=== PATIENT | male | born 1980 | race Two or more races ===

== ENCOUNTER 2024-08-18 06:55 | Inpatient (IN) | payer MEDICAID, SELFPAY ==
[2024-08-18] VITALS (9 sets, daily range): BP systolic 116–149; BP diastolic 68–89; PULSE 57–71; RESP 14–99; TEMP 36.4–37.1; O2SAT 95–98; BMI 25.8
--- NOTE | 2024-08-18 07:02 | EKG_ITS ---
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
--- NOTE | 2024-08-18 07:11 | PC.NURSE ---
Patient BIBA due to L sided chest pain that radiated to L arm 8/10, along with one episode of N/V. EMS gave patient Nitro 1 paste, Nitro SL X2, ASA 162mg chewable. Upon arrival to ED patients pain subsided to 5/10. Patient is A&O X4 Telugu speaking only. Patient states pain is 5/10 at this time. Patient has hx of HTN, hyperlipidemia; no medication at this time since he ran out, and has not received a new Rx. POC updated patient veralized understanding.
--- NOTE | 2024-08-18 07:12 | EDNOTE_ITS ---
ED General RME/HPI General Chief complaint: Chest Pain Stated complaint: CHEST PAIN Time Seen by Provider: 08/18/24 07:30 Arrival date/time: 08/18/24 06:55 Limitations: no limitations RME / HPI RME / HPI narrative: DR. MORGAN MAIN ED EVALUATION: 43 year old male presents to the Emergency Department [facility] from home with complaint of chest pain onset 5 AM. Patient states he was getting ready for work and started having chest pain; he works in the [employer]. Pain radiates to the left arm. Associated symptoms that started after the chest pain include shortness of breath, nausea, and vomiting x2 episodes. He states he had similar symptoms 1 year ago. Per EMS, blood pressure was 200/87, heart rate was 71, and satting at 98% on room air. EKG done by EMS in the field was normal, sinus rhythm at [address]-T changes. Prehospital treatment included ASA and nitro given by EMS. PMHx: Hypertension and hyperlipidemia. Social Hx: No tobacco, alcohol, or substance use. Related Data Previous Rx's ?Medication ?Instructions ?Recorded aspirin 81 mg chewable tablet 81 mg PO QDAY 30 days #3 0 tabs 08/20/24 atorvastatin 80 mg tablet 80 mg PO QPM 30 days #30 tab s 08/20/24 clopidogrel 75 mg tablet 75 mg PO QDAY 30 days #30 ta bs 08/20/24 folic acid 1 mg tablet 1 mg PO BID 14 days #28 tabs 08/20/24 nitroglycerin 0.4 mg sublingual 0.4 mg buccal .up to 3 PRN chest 08/20/24 tablet pain #14 tabs pantoprazole 40 mg tablet,delayed 40 mg PO QDAY 30 day s #30 tabs 08/20/24 release Allergies Allergy/AdvReac Type Severity Reaction Status Date / Time No Known Allergies Allergy Verified 06/10/23 05:35 Review of Systems Review of Systems Systems Reviewed: All systems reviewed, normal except as documented Past Medical History Past Medical History CARDIAC: Positive Hypercholesterolemia and Hypertension PSYCHO/SOCIAL: Positive Anxiety Family History FAMILY HISTORY: Positive Family Cardiac Disorders (MOTHER HTN) and Family Gastrointestinal Problems Social History SMOKING STATUS: Never smoker ED Exam General Limitations: Present no limitations General appearance: Present alert, in no apparent distress and other (mild shakiness like he is cold) Head Head exam: Present atraumatic, normocephalic and normal inspection Eye Eye exam: Present normal appearance, PERRL and EOMI ENT ENT exam: Present normal exam, normal oropharynx and mucous membranes moist Neck Neck exam: Present normal inspection, full ROM and trachea midline Chest Chest inspection: Present normal inspection and symmetric chest wall rise Respiratory Respiratory exam: Present normal lung sounds bilaterally Cardiovascular Cardiovascular exam: Present regular rate, normal rhythm and normal heart sounds Abdominal Exam Abdominal exam: Present soft and normal bowel sounds Extremities Exam Extremities exam: Present normal inspection and full ROM Back Exam Back exam: Present normal inspection and full ROM Neurological Exam Neurological exam: Present alert, oriented X3 and CN II-XII intact Psychiatric Psychiatric exam: Present normal affect and normal mood Skin Skin exam: Present warm, dry, intact and normal color Course Quality Measures none Orders Category Date Time Status COVID-19 Screening Questionnaire NOW Care 08/18/24 12:41 Completed COVID-19 Screening Questionnaire NOW Care 08/18/24 13:33 Completed Director Internal Control STAT Care 08/18/24 07:36 Completed Continuous Pulse Oximetry ONCE Care 08/18/24 07:36 Completed Decision to Admit X1 Care 08/18/24 13:33 Completed EKG (ED ONLY) *Do not use* NOW Care 08/18/24 07:02 Completed Insert IV STAT Care 08/18/24 07:36 Completed Consult to Cardiology Stat Cons 08/18/24 13:33 Ordered EKG (ED Only) Stat Exams 08/18/24 07:02 Draft XR chest 1V portable Stat Exams 08/18/24 07:36 Completed CBC Stat Lab 08/18/24 07:30 Completed Comprehensive Metabolic Panel Stat Lab 08/18/24 07:30 Completed Partial Thromboplastin Time Stat Lab 08/18/24 07:30 Completed Prothrombin Time with INR Stat Lab 08/18/24 07:30 Completed Troponin I Stat Lab 08/18/24 07:30 Completed Troponin I Stat Lab 08/18/24 11:45 Completed Nitroglycerin Oint 2% [Nitro-paste Oint 2%] Med 08/18/24 07:36 Discontinued 1 inch TOP X1 ONE Nitroglycerin [Nitrostat 1/150] Med 08/18/24 07:36 Discontinued 0.4 mg SL Q5M PRN Sodium Chloride 0.9% 1000 ml [Ns] 1,000 ml Med 08/18/24 07:36 Discontinued IV 999 mls/hr Vital Signs Vital signs: Vital Signs Temperature 97.5 F 08/18/24 06:58 Pulse Rate 67 08/18/24 06:58 Respiratory Rate 20 08/18/24 06:58 Blood Pressure 149/89 H 08/18/24 06:58 Pulse Oximetry (%) 98 08/18/24 06:58 Oxygen Delivery Method Room Air 08/18/24 06:58 Discharge Plan Plan Patient Disposition: Admit Acute Care w/in Hospital Problem List Clinical Impression: Chest pain, Elevated troponin Patient/Caregiver Discharge Instructions Discharge Activity: activity as tolerated Other Activity Instructions:: Please follow Post PCI care handout instructions MDM Narrative MDM hospital course: I, April Cuellar, am scribing for and in the presence of Dr. Morgan. CXR, my interpretations: negative. Plan to admit for chest pain and elevated troponins Clinical Information Provided by patient and EMS Medical Records Reviewed EMS Meds/Rx Considered, not Ordered None Labs/Rad/Tests considered, not Ordered None Chronic Illness/Social Conditions Add or document further as needed: PMHx: Hypertension and hyperlipidemia. Social Hx: No tobacco, alcohol, or substance use. EKG Interpretation EKG #1: Date/time of EK08/18/24 7:06 am EKG interpretation: sinus bradycardia, rate 57, no ST-T wave changes, SC interval 133 ms, QRS duration 106 ms, QT/QTc 387/382, P-R-T axis 9, 27, 43 EKG done by EMS in the field was normal prior to arrival: my interpretation: sinus rhythm at [address]-T changes. Lab Interpretation Labs: see narrative above Imaging Imaging interpretation: see narrative above Radiology reports / interpretation(s): Procedure(s): XR chest 1V portable Accession Number(s): [id number] cc: Pablito Morgan MD; Morgan Persaud MD; Manuel Cruz MD~ Examination: AP chest single view Technique AP portable sitting chest single view Date and time: August 18, 2024 0821 hours Comparison June 10, 2023 INDICATION: Chest pain today. FINDINGS: Normal heart size No pneumonia or pulmonary edema The osseous structures are intact IMPRESSION: No active disease Dictated By: Manuel Cruz MD Medication Administration(s) Medication Administration History Discontinued Medications Acetaminophen (Acetaminophen 325 Mg Tablet) 650 mg PO Q6H PRN PRN Reason: Fever >100.3 or pain 1-3 Stop: 09/17/24 14:23 Last Admin: 08/19/24 20:30 Dose: 650 mg Documented By: Admin: 08/18/24 20:38 Dose: 650 mg Documented By: WB Albuterol/Ipratropium (Albuterol/Ipratropium (Duoneb) Rt Skylar 3 Ml Nebu) 3 ml INH Q4HR PRN PRN Reason: SHORTNESS OF BREATH OR WHEEZE Stop: 09/17/24 14:23 Aspirin (Aspirin Ec 81 Mg Tabec) 81 mg PO QDAY [facility] Stop: 09/18/24 08:59 Last Admin: 08/20/24 08:27 Dose: 81 mg Documented By: Admin: 08/19/24 08:07 Dose: 81 mg Documented By: KRYSTIN Aspirin (Aspirin 81 Mg Chew) Confirm Administered Dose 324 mg .ROUTE .STK-MED ONE Stop: 08/19/24 14:33 Last Admin: 08/19/24 14:43 Dose: Not Given Documented By: Non-Admin Reason: Duplicate Medication on eMAR Atorvastatin Calcium (Atorvastatin Calcium 20 Mg Tablet) 80 mg PO X1 ONE Stop: 08/18/24 14:29 Last Admin: 08/18/24 15:05 Dose: 80 mg Documented By: ALTAGRACIA Atorvastatin Calcium (Atorvastatin Calcium 20 Mg Tablet) 80 mg PO HS [facility] Stop: 09/18/24 20:59 Last Admin: 08/19/24 20:22 Dose: 80 mg Documented By: HAYES Atropine Sulfate (Atropine Sulf Inj 1 Mg/Ml Vial) Confirm Administered Dose 1 mg .ROUTE .STK-MED ONE Stop: 08/19/24 14:16 Last Admin: 08/19/24 14:39 Dose: Not Given Documented By: JR Non-Admin Reason: Duplicate Medication on eMAR Bivalirudin (Bivalirudin Inj 250 Mg Vial) Confirm Administered Dose 250 mg IV .STK-MED ONE Stop: 08/19/24 14:23 Last Admin: 08/19/24 14:40 Dose: Not Given Documented By: JR Non-Admin Reason: Duplicate Medication on eMAR Clopidogrel Bisulfate (Clopidogrel Bisulfate 75 Mg Tablet) 75 mg PO X1 ONE Stop: 08/18/24 14:24 Last Admin: 08/18/24 15:04 Dose: 75 mg Documented By: ALTAGRACIA Clopidogrel Bisulfate (Clopidogrel Bisulfate 75 Mg Tablet) 75 mg PO QDAY [facility] Stop: 09/18/24 08:59 Last Admin: 08/19/24 08:06 Dose: 75 mg Documented By: KRYSTIN Clopidogrel Bisulfate (Clopidogrel Bisulfate 75 Mg Tablet) Confirm Administered Dose 600 mg .ROUTE .STK-MED ONE Stop: 08/19/24 14:33 Last Admin: 08/19/24 14:43 Dose: Not Given Documented By: Non-Admin Reason: Duplicate Medication on eMAR Clopidogrel Bisulfate (Clopidogrel Bisulfate 75 Mg Tablet) 75 mg PO X1 ONE Stop: 08/20/24 11:01 Last Admin: 08/20/24 11:26 Dose: 75 mg Documented By: KRYSTIN Epinephrine HCl (Epinephrine Inj 0.1 Mg/Ml Syringe 10ml) Confirm Administered Dose 1 mg .ROUTE .STK-MED ONE Stop: 08/19/24 14:17 Last Admin: 08/19/24 14:40 Dose: Not Given Documented By: Non-Admin Reason: Duplicate Medication on eMAR Fentanyl Citrate (Fentanyl Cit Inj 50 Mcg/Ml Amp 2ml) Confirm Administered Dose 100 mcg .ROUTE .STK-MED ONE Stop: 08/19/24 14:16 Last Admin: 08/19/24 14:39 Dose: Not Given Documented By: Non-Admin Reason: Duplicate Medication on eMAR Flumazenil (Flumazenil Inj 0.1 Mg/Ml Vial 10 Ml) Confirm Administered Dose 1 mg .ROUTE .STK-MED ONE Stop: 08/19/24 14:16 Last Admin: 08/19/24 14:39 Dose: Not Given Documented By: Non-Admin Reason: Duplicate Medication on eMAR Folic Acid (Folic Acid 1 Mg Tablet) 1 mg PO BID [facility] Stop: 08/23/24 14:44 Last Admin: 08/20/24 08:26 Dose: 1 mg Documented By: Admin: 08/19/24 20:22 Dose: 1 mg Documented By: Admin: 08/19/24 08:07 Dose: 1 mg Documented By: Admin: 08/18/24 22:59 Dose: 1 mg Documented By: HAYES Comments: Medication given late due to medication given on 08/17/24 at 1505 per pharmacy recommendation. Admin: 08/18/24 15:04 Dose: 1 mg Documented By: ALTAGRACIA Heparin Sodium (Porcine) (Heparin Sod Inj 5000 Unit/Ml Vial) 5,000 unit SC BID [facility]IM[facility] Stop: 09/01/24 14:29 Last Admin: 08/20/24 08:26 Dose: 5,000 unit Documented By: KRYSTIN Co-signed By: MR Admin: 08/19/24 20:22 Dose: 5,000 unit Documented By: WB Co-signed By: SS Admin: 08/19/24 08:06 Dose: 5,000 unit Documented By: KRYSTIN Co-signed By: HANNAH Admin: 08/18/24 22:59 Dose: 5,000 unit Documented By: WB Co-signed By: Comments: Medication given late due to medication given on 08/17/24 at 1505 per pharmacy recommendation. Admin: 08/18/24 15:06 Dose: 5,000 unit Documented By: ALTAGRACIA Co-signed By: ER Heparin Sodium (Porcine) (Heparin Sod Inj 1000 Unit/Ml Vial 10 Ml) Confirm Administered Dose 20,000 unit .ROUTE .STK-MED ONE Stop: 08/19/24 14:17 Last Admin: 08/19/24 14:40 Dose: Not Given Documented By: Non-Admin Reason: Duplicate Medication on eMAR Sodium Chloride (Ns) 1,000 mls @ 999 mls/hr IV .Q1H1M ONE Stop: 08/18/24 08:36 Last Infusion: 08/18/24 09:08 Dose: Infused Documented By: Admin: 08/18/24 08:07 Dose: 999 mls/hr Documented By: ER Thiamine HCl 100 mg/ Sodium (Chloride) 51 mls @ 102 mls/hr IV X1 STA Stop: 08/18/24 15:01 Last Admin: 08/18/24 14:46 Dose: Not Given Documented By: ER Non-Admin Reason: Discontinued Nitroglycerin/Dextrose (Nitroglycerin In D5w Ivpb) Confirm Administered Dose 50 mg in 250 mls @ ud .ROUTE .STK-MED ONE Stop: 08/19/24 14:17 Last Admin: 08/19/24 14:40 Dose: Not Given Documented By: JR Non-Admin Reason: Duplicate Medication on eMAR Sterile Water (Sterile Water) Confirm Administered Dose 10 mls @ ud .ROUTE .STK- MED ONE Stop: 08/19/24 14:23 Last Admin: 08/19/24 14:40 Dose: Not Given Documented By: JR Non-Admin Reason: Duplicate Medication on eMAR Sodium Chloride (Ns 0.45%) 500 mls @ 100 mls/hr IV .Q5H [facility] Stop: 09/18/24 15:17 Last Infusion: 08/19/24 17:00 Dose: 0 mls/hr Documented By: Admin: 08/19/24 15:18 Dose: 100 mls/hr Documented By: EG Lidocaine HCl (Lidocaine Inj Pf 1% 30 Ml Vial) Confirm Administered Dose 30 ml . ROUTE .STK-MED ONE Stop: 08/19/24 14:17 Last Admin: 08/19/24 14:40 Dose: Not Given Documented By: Non-Admin Reason: Duplicate Medication on eMAR Lorazepam (Lorazepam 0.5 Mg Tablet) 0.5 mg PO Q4HR PRN PRN Reason: CIWA Score 2-6 Stop: 08/23/24 14:31 Last Admin: 08/18/24 17:07 Dose: 0.5 mg Documented By: SHON Lorazepam (Lorazepam 2 Mg/Ml Vial) 1 mg IV X1 PRN PRN Reason: Breakthrough Agitation Lorazepam (Lorazepam 0.5 Mg Tablet) 1 mg PO Q4HR PRN PRN Reason: CIWA SCORE 7-11 Stop: 08/23/24 14:31 Lorazepam (Lorazepam 0.5 Mg Tablet) 2 mg PO Q4HR PRN PRN Reason: CIWA SCORE 12-15 Stop: 08/23/24 14:31 Lorazepam (Lorazepam 2 Mg/Ml Vial) 1 mg IV Q2HR PRN PRN Reason: CIWA SCORE 14-19 Stop: 08/23/24 14:31 Metoprolol Succinate (Metoprolol Succinate Xl 25 Mg Tabcr) 25 mg PO QDAY [facility] Stop: 09/18/24 08:59 Last Admin: 08/20/24 08:27 Dose: 25 mg Documented By: Admin: 08/19/24 08:06 Dose: 25 mg Documented By: KRYSTIN Midazolam HCl (Midazolam Inj 1 Mg/Ml Vial 2 Ml) Confirm Administered Dose 2 mg .ROUTE .STK-MED ONE Stop: 08/19/24 14:15 Last Admin: 08/19/24 14:39 Dose: Not Given Documented By: Non-Admin Reason: Duplicate Medication on eMAR Morphine Sulfate (Morphine Sulf Inj 10 Mg/Ml Vial) 2 mg IVP Q4H PRN PRN Reason: BREAKTHROUGH PAIN (SEVERE) Stop: 08/23/24 14:23 Naloxone HCl (Naloxone Inj 0.4 Mg/Ml Vial) Confirm Administered Dose 0.8 mg .ROUTE .STK-MED ONE Stop: 08/19/24 14:16 Last Admin: 08/19/24 14:39 Dose: Not Given Documented By: Non-Admin Reason: Duplicate Medication on eMAR Nitroglycerin (Nitroglycerin Oint 2% 1 Inch Packet) 1 inch TOP X1 ONE Stop: 08/18/24 07:37 Last Admin: 08/18/24 07:57 Dose: Not Given Documented By: ER Non-Admin Reason: given by EMS Nitroglycerin (Nitroglycerin 0.4 Mg Subl Btl #25) 0.4 mg SL Q5M PRN PRN Reason: CHEST PAIN Ondansetron HCl (Ondansetron Inj 2 Mg/Ml Inj 2 Ml) 4 mg IVP Q6H PRN; Protocol PRN Reason: NAUSEA OR VOMITING Stop: 09/17/24 14:23 Pantoprazole Sodium (Pantoprazole 40 Mg Tablet) 40 mg PO QDAY [facility] Stop: 09/17/24 14:29 Last Admin: 08/20/24 08:27 Dose: 40 mg Documented By: Admin: 08/19/24 08:07 Dose: 40 mg Documented By: Admin: 08/18/24 15:05 Dose: 40 mg Documented By: ALTAGRACIA Phenylephrine HCl (Phenylephrine Inj In Ns 100 Mcg/Ml 10 Ml Syringe) Confirm Administered Dose 1,000 mcg .ROUTE .STK-MED ONE Stop: 08/19/24 14:16 Last Admin: 08/19/24 14:39 Dose: Not Given Documented By: Non-Admin Reason: Duplicate Medication on eMAR Thiamine HCl (Thiamine Inj 100 Mg/Ml Vial 2 Ml) 100 mg IVP X1 ONE Stop: 08/18/24 14:46 Last Admin: 08/18/24 15:10 Dose: 100 mg Documented By: ALTAGRACIA Verapamil HCl (Verapamil Inj 2.5 Mg/Ml Vial 2 Ml) Confirm Administered Dose 5 mg .ROUTE .STK-MED ONE Stop: 08/19/24 14:16 Last Admin: 08/19/24 14:39 Dose: Not Given Documented By: Non-Admin Reason: Duplicate Medication on eMAR Consultations/Discussions re: Management Consult #1: Date/time: 08/18/24 1337 hours Physician, specialty, service, details: Discussed test HPI, PMHx, lab, radiology results and/or management with resident working with the hospitalist. Will admit for further evaluation and management. Accepts patient for admission. Diagnosis Differential diagnosis: NH, chest pain, atypical chest pain Most likely dx, and/or detailed dx discussion: Chest pain Elevated troponins Dispositon Disposition: Admit
--- NOTE | 2024-08-18 07:36 | XR_ITS ---
Examination: AP chest single view Technique AP portable sitting chest single view Date and time: August 18, 2024 0821 hours Comparison June 10, 2023 INDICATION: Chest pain today. FINDINGS: Normal heart size No pneumonia or pulmonary edema The osseous structures are intact IMPRESSION: No active disease
[2024-08-18 07:54] LABS: Basophils # (Auto) 0.1 Thou/mm3 (0.0-0.2); Basophils % (Auto) 1 % (0-2.5); Eosinophils # (Auto) 0.3 Thou/mm3 (0.0-0.5); Eosinophils % (Auto) 4 % (0-10); Hematocrit 47.8 % (41.0-53.0); Hemoglobin 16.7 g/dL (13.5-16.0); Immature Granulocytes % (Auto) 0 % (0-0); Immature Granulocytes Auto 0.02 Thou/mm3 (0.00-0.00); Lymphocytes # (Auto) 1.4 Thou/mm3 (1.0-4.8); Lymphocytes % (Auto) 16 % (10-50); Mean Corpuscular HGB Conc 34.9 g/dl (31.0-37.0); Mean Corpuscular Hemoglobin 31.4 pg (25.0-35.0); Mean Corpuscular Volume 90 fL (80-100); Monocytes # (Auto) 0.5 Thou/mm3 (0.0-0.8); Monocytes % (Auto) 6 % (0-12); Neutrophils # (Auto) 6.1 Thou/mm3 (1.8-7.7); Neutrophils % (Auto) 73 % (37-80); Nucleated Red Blood Cell % 0 /100 WBC (0); Platelet Count 311 Thou/mm3 (140-440); RDW Standard Deviation 39.8 fL (35.1-43.9); Red Blood Count 5.32 Miln/mm3 (4.50-5.90); White Blood Count 8.4 Thou/mm3 (3.8-10.6)
[2024-08-18] MEDS: SODIUM CHLORIDE 0.9% 1000 ML 1,000 ML 999 ML IV (08:07)
[2024-08-18 08:45] LABS: Alanine Aminotransferase 37 U/L (10-49); Albumin, Serum 4.8 gm/dL (3.5-5.0); Albumin/Globulin Ratio 1.9 (1.2-2.2); Alkaline Phosphatase 80 U/L (46-116); Anion Gap 9 (7-16); Aspartate Amino Transferase 36 U/L (0-34); BUN/Creatinine Ratio 12 Ratio (12-20); Bilirubin,Total 0.8 mg/dL (0.3-1.2); Blood Urea Nitrogen 12 mg/dL (9-23); Calcium 9.8 mg/dL (8.3-10.6); Calcium (Corrected) 9.8 mg/dL (8.5-10.1); Carbon Dioxide 26.8 mMol/L (20.0-31.0); Chloride 104 mMol/L (98-107); Estimated Creatinine Clearance 87.2 mL/min (>60); Globulin 2.5 gm/dL (2.3-3.5); Glucose 107 mg/dL (74-106); Osmolality,Calculated 279 (275-295); Potassium 4.2 mMol/L (3.4-5.1); Sodium 140 mMol/L (136-145); Total Protein 7.3 gm/dL (5.7-8.2); Troponin I 0.023 ng/mL (0.0-0.045); eGFR > 60 See Note
[2024-08-18 08:52] LABS: INR 0.9 (0.9-1.3); Partial Thromboplastin Time 27.9 Seconds (22.0-36.0); Prothrombin Time 10.4 Seconds (9.0-12.2)
[2024-08-18 12:40] LABS: Troponin I 0.285 ng/mL (0.0-0.045)
--- NOTE | 2024-08-18 14:19 | ESHP_ITS ---
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 Patient is a 43-year-old male with a past medical history significant for hyperlipidemia, primary hypertension, alcohol use disorder and NSTEMI 2023 presented with a chief complaint of chest pain. According to the patient at approximately 6 AM this morning while he was changing his close getting ready for work he experienced sudden onset central sharp chest pain with radiation to his left arm. Described as 10/10 in severity and associated with palpitations, shortness of breath, diaphoresis and 1 episode of vomiting. There were no aggravating or relieving factors initially. There is lasted for approximately 1 hour and then the ambulance arrived and he was administered nitroglycerin sublingual and aspirin. This subsided his pain. Patient denies any presyncope, epigastric pain, GERD, lower extremity swelling, sick contacts and recent travel. Of note patient had an almost identical presentation May 2023 at this hospital. He was treated for NSTEMI and underwent heart catheterization which showed single-vessel coronary artery disease, evidence of moderate 70% stenosis in diagonal branch of LAD. No stents were placed as there is single-vessel disease with branch not major coronary artery that can be managed medically. At the time patient was started on aggressive medical management, however patient stated that he stopped taking his medication after discharge as he felt better. ED course: BP 116/75, pulse 67, RR 20, temp 97.5 F, SpO2 98% on room air. Labs showed Hb 16.7, HCT 47.8, BUN 12, CR 1, troponin 0.023 ---> 0.285. EKG showed sinus bradycardia, rate 57. No acute ST changes Patient received nitroglycerin patch x 1 and 1 L normal saline bolus in the ED. Prehospital he received aspirin and nitroglycerin sublingual in the ambulance Patient will be admitted for workup and management of NSTEMI Cardiology, Dr. Hughes consulted and closely following the case Review of Systems Review of Systems Narrative Review of Systems: GENERAL: Denies fever/chills or diaphoresis. HEENT: Denies headaches or visual changes. Denies discharge. Neuro: Denies unusual weakness or difficulty speaking. CARDIO: As above PULM: As above. GI: Denies abdominal pain, N/V/C/D. Reports having BMs. URO: Denies buring/itching/pain/urinary changes. MSK/EXT/SKIN: Denies joint/skeletal/muscle pain, issues/changes in upper or lower extremities, itchiness, or superficial pain. PSYCH: Cooperative, pleasant mood & affect. The rest of the review of systems is otherwise negative. Past Medical History Past Medical History Comments PMH COMMENT: Past medical history: Primary hypertension Hyperlipidemia NSTEMI 2023 Alcohol use disorder Medication list: None Past surgical history: Left Heart catheterization 2023 Allergies: NKFDA Social history: Occupational History: Works in the [employer] Education Level: Did not attend school Marital Status: Single. No kids Tobacco use: Quit 15 years ago. Approximately 75-fkzl-qaal history ETHO use: Drinks 3 beers every day. Last drink yesterday Illicit drug use: Denies Social History Note: lives with cousin. Ambulance at baseline. Does not exercise regularly Family History: No significant history. Exam Vital Signs Temp Pulse Resp BP Pulse Ox O2 Del Method 98.7 F 62 15 116/70 95 Room Air 08/18/24 12:11 08/18/24 12:11 08/18/24 12:11 08/18/24 12:11 08/18/24 12:11 08/18/24 12:11 Narrative Exam Constitutional Alert, oriented x 3 and comfortable. Young male HEENT Vision grossly intact. Patent nares. Trachea midline Respiratory Chest normal on inspection, Nitropatch noted on left chest and clear auscultation bilaterally Cardiovascular S1 and S2 audible, RRR. No murmurs carotid bruit. No gross JVD. Abdominal Soft and non tender to palpation in all quadrants. BS + Genitourinary No bladder tenderness, no flank pain. Normal to palpation Musculoskeletal Extremities tone within normal limits. No LE edema. Neurological CN II - XII grossly intact. Extremity motor and sensation grossly intact. Skin Warm, dry and intact. No apparent lesions. Psychiatric Patient has good affect, is cooperative Results: Labs 08/18/24 07:30 08/18/24 07:30 Labs: Short CBC 08/18/24 Range/Units 07:30 WBC 8.4 (3.8-10.6) Thou/mm3 Hgb 16.7 H (13.5-16.0) g/dL Hct 47.8 (41.0-53.0) % Plt Count 311 (140-440) Thou/mm3 BMP 08/18/24 07:30 Sodium 140 Potassium 4.2 Chloride 104 Carbon Dioxide 26.8 BUN 12 Creatinine 1.0 Glucose 107 H Calcium 9.8 Cardiac Enzymes 08/18/24 08/18/24 Range/Units 07:30 11:45 Troponin I 0.023 0.285 H* D (0.0-0.045) ng/mL Liver Function 08/18/24 Range/Units 07:30 Total Bilirubin 0.8 (0.3-1.2) mg/dL AST 36 H (0-34) U/L ALT 37 (10-49) U/L Alkaline Phosphatase 80 (46-116) U/L Albumin 4.8 (3.5-5.0) gm/dL Quality Measures Quality Measures none Medications Home Medications and Allergies Allergies Allergy/AdvReac Type Severity Reaction Status Date / Time No Known Allergies Allergy Verified 06/10/23 05:35 Visit Medications Nitroglycerin (Nitroglycerin 0.4 Mg Subl Btl #25) 0.4 mg SL Q5M PRN PRN Reason: CHEST PAIN Discontinued Medications Sodium Chloride (Ns) 1,000 mls @ 999 mls/hr IV .Q1H1M ONE Stop: 08/18/24 08:36 Last Infusion: 08/18/24 09:08 Dose: Infused Nitroglycerin (Nitroglycerin Oint 2% 1 Inch Packet) 1 inch TOP X1 ONE Stop: 08/18/24 07:37 Last Admin: 08/18/24 07:57 Dose: Not Given Assessment & Plan Plan Patient is a 43-year-old male with a past medical history significant for hyperlipidemia, primary hypertension, alcohol use disorder and NSTEMI 2023 presented with a chief complaint of chest pain. troponin 0.023 ---> 0.285. EKG showed sinus bradycardia, rate 57. No acute ST changes. Patient will be admitted for workup and management of NSTEMI. ACS rule out NSTEMI type I versus type II Patient presented with typical central chest pain which was resolved by nitroglycerin Troponin 0.023 ---> 0.285. EKG showed sinus bradycardia, rate 57. No acute ST changes. Received aspirin in the ambulance. Plan: ? Trend troponin x 3 ? Plavix 75 Mg p.o. x 1 then 75 Mg p.o. daily ? Aspirin 81 Mg p.o. daily ? Atorvastatin 80 Mg p.o. x 1 then at bedtime ? Nitroglycerin SL as needed ? Cardiology, Dr. Hughes consulted and closely following the case. Appreciate recommendations Primary hypertension Hyperlipidemia Patient was on metoprolol succinate 25 Mg previously and atorvastatin. Plan: ? To resume metoprolol succinate 25 Mg p.o. daily from tomorrow Alcohol use disorder Patient is a daily drinker consuming approximately 3 beers per day. Last drink was last night. Denies ever having symptoms of alcohol withdrawal. Plan: ? CIWA protocol Health maintenance: Disposition: Pending clinical course and specialist recommendations Diet: Cardiac Lines: pIVs GI Prophylaxis: Pantoprazole Thrombo Prophylaxis: Heparin Code status: FULL CODE Plan of care discussed with Attending Dr. Anjali Blanc MD PGY 1 Disclaimer: This note was dictated by speech recognition. Minor errors in tilt wall supervisor may be present due to voice recognition software. Attending Provider Attestation/Addendum I have discussed and was present for the essential components of the history, physical examination, diagnosis, and treatment plan with the resident. I agree with the patient's care as documented by the resident and amended herein by me. Lonnie Alba DO. Although this document has been carefully reviewed, there may still be some phonetic and other typographical errors. These errors are purely grammatical due to imperfections in the software program and should not be construed in any way to compromise the substance of the patient's medical care during this visit.
[2024-08-18] MEDS: FOLIC ACID 1 MG TABLET PO ×2 (15:04→22:59)
[2024-08-18] MEDS: CLOPIDOGREL BISULFATE 75 MG TABLET PO (15:04)
[2024-08-18] MEDS: PANTOPRAZOLE 40 MG TABLET PO (15:05)
[2024-08-18] MEDS: ATORVASTATIN CALCIUM 20 MG TABLET 80 MG PO (15:05)
[2024-08-18] MEDS: HEPARIN SOD INJ 5000 UNIT/ML VIAL SC ×2 (15:06→22:59)
[2024-08-18] MEDS: THIAMINE INJ 100 MG/ML VIAL 2 ML IVP (15:10)
[2024-08-18] MEDS: LORazepam 0.5 MG TABLET PO (17:07)
[2024-08-18 17:34] LABS: Troponin I 0.526 ng/mL (0.0-0.045)
[2024-08-18] MEDS: ACETAMINOPHEN 325 MG TABLET 650 MG PO (20:38)
[2024-08-19] VITALS (20 sets, daily range): BP systolic 114–150; BP diastolic 72–94; PULSE 52–82; RESP 11–97; TEMP 35.9–36.8; O2SAT 94–100; BMI 25.8
[2024-08-19 00:13] LABS: Troponin I 0.526 ng/mL (0.0-0.045)
[2024-08-19 05:43] LABS: Basophils # (Auto) 0.1 Thou/mm3 (0.0-0.2); Basophils % (Auto) 1 % (0-2.5); Eosinophils # (Auto) 0.4 Thou/mm3 (0.0-0.5); Eosinophils % (Auto) 6 % (0-10); Hematocrit 44.4 % (41.0-53.0); Hemoglobin 15.3 g/dL (13.5-16.0); Immature Granulocytes % (Auto) 0 % (0-0); Immature Granulocytes Auto 0.02 Thou/mm3 (0.00-0.00); Lymphocytes # (Auto) 1.5 Thou/mm3 (1.0-4.8); Lymphocytes % (Auto) 23 % (10-50); Mean Corpuscular HGB Conc 34.5 g/dl (31.0-37.0); Mean Corpuscular Hemoglobin 31.7 pg (25.0-35.0); Mean Corpuscular Volume 92 fL (80-100); Monocytes # (Auto) 0.6 Thou/mm3 (0.0-0.8); Monocytes % (Auto) 10 % (0-12); Neutrophils # (Auto) 3.9 Thou/mm3 (1.8-7.7); Neutrophils % (Auto) 60 % (37-80); Nucleated Red Blood Cell % 0 /100 WBC (0); Platelet Count 260 Thou/mm3 (140-440); RDW Standard Deviation 41.1 fL (35.1-43.9); Red Blood Count 4.82 Miln/mm3 (4.50-5.90); White Blood Count 6.5 Thou/mm3 (3.8-10.6)
[2024-08-19 06:17] LABS: Glucose Estimated Average 103 mg/dL (80-131); Hemoglobin A1C 5.2 % Hgb (4.8-6.0)
[2024-08-19 06:33] LABS: Anion Gap 9 (7-16); BUN/Creatinine Ratio 10 Ratio (12-20); Blood Urea Nitrogen 10 mg/dL (9-23); Calcium 9.4 mg/dL (8.3-10.6); Carbon Dioxide 26.9 mMol/L (20.0-31.0); Chloride 103 mMol/L (98-107); Estimated Creatinine Clearance 87.2 mL/min (>60); Glucose 103 mg/dL (74-106); Magnesium 2.1 mg/dL (1.6-2.6); Osmolality,Calculated 276 (275-295); Phosphorous 3.3 mg/dL (2.4-5.1); Potassium 3.8 mMol/L (3.4-5.1); Sodium 139 mMol/L (136-145); Thyroid Stimulating Hormone 0.86 uIU/mL (0.55-4.78); eGFR > 60 See Note
[2024-08-19 06:38] LABS: Troponin I 0.494 ng/mL (0.0-0.045)
[2024-08-19 06:47] LABS: Cardiac Risk Estimate 2.9 RATIO (4.0-6.7); Cholesterol 189 mg/dL (132-200); HDL Cholesterol 66 mg/dL (40-60); LDL Cholesterol,Calculated 102 mg/dL (0-130); Triglycerides 105 mg/dL (30-150)
[2024-08-19] MEDS: METOPROLOL SUCCINATE XL 25 MG TABCR PO (08:06)
[2024-08-19] MEDS: CLOPIDOGREL BISULFATE 75 MG TABLET PO (08:06)
[2024-08-19] MEDS: HEPARIN SOD INJ 5000 UNIT/ML VIAL SC ×2 (08:06→20:22)
[2024-08-19] MEDS: FOLIC ACID 1 MG TABLET PO ×2 (08:07→20:22)
[2024-08-19] MEDS: ASPIRIN EC 81 MG TABEC PO (08:07)
[2024-08-19] MEDS: PANTOPRAZOLE 40 MG TABLET PO (08:07)
--- NOTE | 2024-08-19 10:00 | PC.SS ---
Rounding: Pending Heart Cath
--- NOTE | 2024-08-19 13:16 | PD.IMCONS ---
HPI Data of Consult Requesting Physician: Jesus Alba DO Primary Care Provider: Morgan Persaud MD Consult Narrative History of present illness: This t is a 43-year-old male with a past medical history significant for hyperlipidemia, primary hypertension, alcohol use disorder and NSTEMI Patient seen in the emergency room with a complaint of chest pain Troponin was abnormal Cardiology consultation requested Patient is seen in the telemetry Continues to complain of recurrent chest pain fatigue tiredness cc:: cc: Jesus Alba DO Meds Home Medications and Allergies Allergies Allergy/AdvReac Type Severity Reaction Status Date / Time No Known Allergies Allergy Verified 06/10/23 05:35 Exam Vital Signs Temp Pulse Resp BP Pulse Ox O2 Del Method 98.0 F 62 18 115/77 98 Room Air 08/19/24 12:00 08/19/24 12:00 08/19/24 12:00 08/19/24 12:00 08/19/24 12:00 08/19/24 12:00 Routine HEENT Exam Head: Present normocephalic and atraumatic Eye: Present EOMI and PERRL ENT: Present mucous membranes moist Routine Neck Exam Neck: Present supple and trachea midline Routine Respiratory Exam Respiratory: Present chest non-tender, lungs clear, normal breath sounds and no resp distress Routine Cardiovascular Exam Cardiovascular: Present RRR Routine Abdominal Exam Abdominal: Present soft and normoactive bowel sounds Routine Extremities Exam Extremities: Present full ROM Routine Skin Exam Skin: Present intact, dry and warm Routine Neurological Exam Neurological: Present alert, oriented X3 and CN II-XII intact Routine Psychiatric Exam Psychiatric: Present normal affect and normal thought process Results Labs 08/19/24 05:20 08/19/24 05:20 Labs: Short CBC 08/19/24 Range/Units 05:20 WBC 6.5 (3.8-10.6) Thou/mm3 Hgb 15.3 (13.5-16.0) g/dL Hct 44.4 (41.0-53.0) % Plt Count 260 D (140-440) Thou/mm3 BMP 08/19/24 05:20 Sodium 139 Potassium 3.8 Chloride 103 Carbon Dioxide 26.9 BUN 10 Creatinine 1.0 Glucose 103 Calcium 9.4 Cardiac Enzymes 08/18/24 08/18/24 08/19/24 Range/Units 16:51 23:38 05:20 Troponin I 0.526 H* D 0.526 H* 0.494 H* (0.0-0.045) ng/mL Assessment and Plan Assessment and plan (1) Elevated troponin: Status: Acute (2) Chest pain: Status: Acute (3) Non-ST elevation TN (NSTEMI): Status: Acute Additional Assessment & Plan Additional Plan: Continue current medical management Heart cath today
--- NOTE | 2024-08-19 15:00 | PD.CARDCATH ---
Cardiac Cath Procedure Procedure Narrative Procedure date 08/19/2024 Title of the procedure 1.left heart catheterization 2.left coronary angiogram 3.right coronary angiogram 4.left ventriculogram 5.conscious sedation 6.radiographic interpretation supervision 7.ultrasound guidance for right radial access Indication for the procedure This is a 43-year-old gentleman with hypertension hyperlipidemia Prior history of coronary artery disease mild He was complaining of anterior chest pain Troponin peaked at 0.4 Cardiac catheterization coronary angiogram recommended Procedure This is done in the cardiac lab under current electrocardiographic monitoring Intermittent blood pressure monitoring with ultrasound guidance Right radial access obtained and 6 Kinyarwanda sheath was placed [place] 4 catheter used for selective in the left coronary artery [place] 4 catheter was used for surgery in the right coronary artery Sree 4 catheter used for left ventriculogram Findings Hemodynamics 1.left ventriculogram reveals normal left ventricular systolic function 2.approximate ejection fraction 55% 3.end-diastolic pressure was 18 mmHg 4.there is no gradient across the aortic valve Coronary anatomy 1.right coronary is a dominant vessel 2.left main coronary artery appears normal 3.left anterior descending artery has minor luminal irregularities 4.diagonal has a 60 to 70% lesion noted proximally 5.no significant coronary lesion noted in the circumflex 6.right coronary is a dominant vessel no significant lesion noted Conclusion Moderate disease in the diagonal Continue medical management
[2024-08-19] MEDS: SODIUM CHLORIDE 0.45 % 500 ML 100 ML IV (15:18)
--- NOTE | 2024-08-19 17:28 | PC.NURSE ---
patient transfered via gurney back to room. hand off report given to enedelia thomas. enedelia and I assessed site and dressing at bedside. site is soft, flat, and no signs of hematoma. dressing is clean dry and intact.
--- NOTE | 2024-08-19 18:24 | ESPR_ITS ---
Documentation for date of: 08/19/24 Subjective Subjective Interval history: Patient bhutanese speaking and interaction facilitated by registered health care educational interpreter Patient was seen and examined at bedside this AM. No acute exents overnight. Patient tolerating diet, adequate urine output and mentation is at baseline. Patient endorses improvement of chest pain. HbA1c 5.2% , Lipid panel showed Chol 189, LDL 102, HDL 66. Scheduled for heart catheterization today Exam Vital Signs Temp Pulse Resp BP Pulse Ox O2 Del Method 98.1 F 81 18 139/81 H 98 Room Air 08/19/24 14:54 08/19/24 17:20 08/19/24 16:45 08/19/24 16:45 08/19/24 16:45 08/19/24 16:45 Narrative Exam Constitutional Alert, oriented x 3 and comfortable. Young male HEENT Vision grossly intact. Patent nares. Trachea midline Respiratory Chest normal on inspection, Nitropatch noted on left chest and clear auscultation bilaterally Cardiovascular S1 and S2 audible, RRR. No murmurs carotid bruit. No gross JVD. Abdominal Soft and non tender to palpation in all quadrants. BS + Genitourinary No bladder tenderness, no flank pain. Normal to palpation Musculoskeletal Extremities tone within normal limits. No LE edema. Neurological CN II - XII grossly intact. Extremity motor and sensation grossly intact. Skin Warm, dry and intact. No apparent lesions. Psychiatric Patient has good affect, is cooperative Objective Labs 08/20/24 04:44 08/20/24 04:44 Labs: Laboratory Results - last 24 hr 08/18/24 08/19/24 23:38 05:20 WBC 6.5 RBC 4.82 Hgb 15.3 Hct 44.4 MCV 92 MCH 31.7 MCHC 34.5 RDW Std Deviation 41.1 Plt Count 260 D Neut % (Auto) 60 Lymph % (Auto) 23 [place] % (Auto) 10 Eos % (Auto) 6 Baso % (Auto) 1 Neut # (Auto) 3.9 Lymph # (Auto) 1.5 [place] # (Auto) 0.6 Eos # (Auto) 0.4 Baso # (Auto) 0.1 Immature Gran # (Auto) 0.02 H Absolute Nucleated RBC 0.00 Immature Gran % 0 Nucleated RBC % 0 Sodium 139 Potassium 3.8 Chloride 103 Carbon Dioxide 26.9 Anion Gap 9 BUN 10 Creatinine 1.0 Estim Creat Clear Calc 87.2 eGFR > 60 BUN/Creatinine Ratio 10 L Glucose [address] Glu mg/dL 103 Hemoglobin A1c 5.2 Calculated Osmolality 276 Calcium 9.4 Phosphorus 3.3 Magnesium 2.1 Troponin I 0.526 H* 0.494 H* Triglycerides 105 Cholesterol 189 LDL Cholesterol, Calc 102 HDL Cholesterol 66 H Cholesterol/HDL Ratio 2.9 L TSH 0.86 Quality Measures Quality Measures none Assessment & Plan Assessment Current Active Medications: Generic Name Dose Route Start Last Admin Trade Name Freq PRN Reason Stop Dose Admin Acetaminophen 650 mg 08/18/24 14:24 08/18/24 20:38 Acetaminophen 325 Mg Tablet PO 09/17/24 14:23 650 mg Q6H PRN Administration Fever >100.3 or pain 1-3 Albuterol/Ipratropium 3 ml 08/18/24 14:24 Albuterol/Ipratropium (Duoneb) Rt Skylar 3 Ml Nebu INH 09/17/24 14:23 Q4HR PRN SHORTNESS OF BREATH OR WHEEZE Aspirin 81 mg 08/19/24 09:00 08/19/24 08:07 Aspirin Ec 81 Mg Tabec PO 09/18/24 08:59 81 mg QDAY HALIMA Administration Atorvastatin Calcium 80 mg 08/19/24 21:00 Atorvastatin Calcium 20 Mg Tablet PO 09/18/24 20:59 HS HALIMA Folic Acid 1 mg 08/18/24 14:45 08/19/24 08:07 Folic Acid 1 Mg Tablet PO 08/23/24 14:44 1 mg BID HALIMA Administration Heparin Sodium (Porcine) 5,000 unit 08/18/24 14:30 08/19/24 08:06 Heparin Sod Inj 5000 Unit/Ml Vial SC 09/01/24 14:29 5,000 unit BID HALIMA Administration Lorazepam 0.5 mg 08/18/24 14:32 08/18/24 17:07 Lorazepam 0.5 Mg Tablet PO 08/23/24 14:31 0.5 mg Q4HR PRN Administration CIWA Score 2-6 Lorazepam 1 mg 08/18/24 14:32 Lorazepam 2 Mg/Ml Vial IV X1 PRN Breakthrough Agitation Lorazepam 1 mg 08/18/24 14:32 Lorazepam 0.5 Mg Tablet PO 08/23/24 14:31 Q4HR PRN CIWA SCORE 7-11 Lorazepam 2 mg 08/18/24 14:32 Lorazepam 0.5 Mg Tablet PO 08/23/24 14:31 Q4HR PRN CIWA SCORE 12-15 Lorazepam 1 mg 08/18/24 14:32 Lorazepam 2 Mg/Ml Vial IV 08/23/24 14:31 Q2HR PRN CIWA SCORE 14-19 Metoprolol Succinate 25 mg 08/19/24 09:00 08/19/24 08:06 Metoprolol Succinate Xl 25 Mg Tabcr PO 09/18/24 08:59 25 mg QDAY HALIMA Administration Morphine Sulfate 2 mg 08/18/24 14:24 Morphine Sulf Inj 10 Mg/Ml Vial IVP 08/23/24 14:23 Q4H PRN BREAKTHROUGH PAIN (SEVERE) Nitroglycerin 0.4 mg 08/18/24 07:36 Nitroglycerin 0.4 Mg Subl Btl #25 SL Q5M PRN CHEST PAIN Ondansetron HCl 4 mg 08/18/24 14:24 Ondansetron Inj 2 Mg/Ml Inj 2 Ml IVP 09/17/24 14:23 Q6H PRN NAUSEA OR VOMITING Protocol Pantoprazole Sodium 40 mg 08/18/24 14:30 08/19/24 08:07 Pantoprazole 40 Mg Tablet PO 09/17/24 14:29 40 mg QDAY HALIMA Administration Plan Patient is a 43-year-old male with a past medical history significant for hyperlipidemia, primary hypertension, alcohol use disorder and NSTEMI 2023 presented with a chief complaint of chest pain. troponin 0.023 ---> 0.285. EKG showed sinus bradycardia, rate 57. No acute ST changes. Patient will be admitted for workup and management of NSTEMI. ACS rule out NSTEMI type I versus type II Patient presented with typical central chest pain which was resolved by nitroglycerin Troponin 0.023 ---> 0.285. EKG showed sinus bradycardia, rate 57. No acute ST changes. Received aspirin in the ambulance. Patient endorses improvement of chest pain. HbA1c 5.2% , Lipid panel showed Chol 189, LDL 102, HDL 66. Scheduled for heart catheterization today Plan: ? Plavix 75 Mg po daily ? Aspirin 81 Mg p.o. daily ? Atorvastatin 80 Mg bedtime ? Nitroglycerin SL as needed ? Cardiology, Dr. Hughes consulted and closely following the case. Appreciate recommendations Primary hypertension Hyperlipidemia Patient was on metoprolol succinate 25 Mg previously and atorvastatin. Plan: ? Resumed metoprolol succinate 25 Mg p.o. daily Alcohol use disorder Patient is a daily drinker consuming approximately 3 beers per day. Last drink was last night. Denies ever having symptoms of alcohol withdrawal. Plan: ? CIWA protocol Health maintenance: Disposition: For Heart catheterization today. Anticipate discharge within next 24 to 48 hours Diet: Cardiac Lines: pIVs GI Prophylaxis: Pantoprazole Thrombo Prophylaxis: Heparin Code status: FULL CODE Plan of care discussed with Attending Dr. David Blanc MD PGY 1 Attending Provider Attestation/Addendum I reviewed labs, imaging, EKG, home medications and prior available records. Face to face evaluation was performed by me. I have personally examined the patient and discussed assessment and plan with the IM team. I reviewed the resident note and agree with the plan with exceptions as below. Non-STEMI Alcohol abuse Essential hypertension Hyperlipidemia Continue aspirin and Plavix Continue atorvastatin Consulted cardiology: Plan for cardiac catheterization on 08/19 Avoid alcohol use Started [facility] protocol Troponin peaked
[2024-08-19] MEDS: ATORVASTATIN CALCIUM 20 MG TABLET 80 MG PO (20:22)
[2024-08-19] MEDS: ACETAMINOPHEN 325 MG TABLET 650 MG PO (20:30)
[2024-08-20] VITALS (7 sets, daily range): BP systolic 117–136; BP diastolic 76–93; PULSE 50–93; RESP 18–96; TEMP 36.1–36.8; O2SAT 95–98; BMI 25.7
[2024-08-20 05:35] LABS: Basophils # (Auto) 0.1 Thou/mm3 (0.0-0.2); Basophils % (Auto) 1 % (0-2.5); Eosinophils # (Auto) 0.3 Thou/mm3 (0.0-0.5); Eosinophils % (Auto) 5 % (0-10); Hematocrit 47.3 % (41.0-53.0); Immature Granulocytes % (Auto) 0 % (0-0); Immature Granulocytes Auto 0.01 Thou/mm3 (0.00-0.00); Lymphocytes # (Auto) 1.4 Thou/mm3 (1.0-4.8); Lymphocytes % (Auto) 22 % (10-50); Mean Corpuscular HGB Conc 33.8 g/dl (31.0-37.0); Mean Corpuscular Hemoglobin 31.1 pg (25.0-35.0); Mean Corpuscular Volume 92 fL (80-100); Monocytes # (Auto) 0.7 Thou/mm3 (0.0-0.8); Monocytes % (Auto) 10 % (0-12); Neutrophils # (Auto) 4.2 Thou/mm3 (1.8-7.7); Neutrophils % (Auto) 63 % (37-80); Nucleated Red Blood Cell % 0 /100 WBC (0); Platelet Count 263 Thou/mm3 (140-440); RDW Standard Deviation 41.3 fL (35.1-43.9); Red Blood Count 5.15 Miln/mm3 (4.50-5.90); White Blood Count 6.7 Thou/mm3 (3.8-10.6)
[2024-08-20 06:01] LABS: Anion Gap 8 (7-16); BUN/Creatinine Ratio 13 Ratio (12-20); Blood Urea Nitrogen 12 mg/dL (9-23); Calcium 8.9 mg/dL (8.3-10.6); Chloride 107 mMol/L (98-107); Creatinine (Component) 0.9 mg/dL (0.6-1.3); Estimated Creatinine Clearance 96.9 mL/min (>60); Glucose 103 mg/dL (74-106); Osmolality,Calculated 282 (275-295); Phosphorous 3.6 mg/dL (2.4-5.1); Potassium 4.5 mMol/L (3.4-5.1); Sodium 142 mMol/L (136-145); eGFR > 60 See Note
[2024-08-20] MEDS: FOLIC ACID 1 MG TABLET PO (08:26)
[2024-08-20] MEDS: HEPARIN SOD INJ 5000 UNIT/ML VIAL SC (08:26)
[2024-08-20] MEDS: PANTOPRAZOLE 40 MG TABLET PO (08:27)
[2024-08-20] MEDS: METOPROLOL SUCCINATE XL 25 MG TABCR PO (08:27)
[2024-08-20] MEDS: ASPIRIN EC 81 MG TABEC PO (08:27)
--- NOTE | 2024-08-20 09:14 | PC.SS ---
Follow up note: Dc today.
[2024-08-20] MEDS: CLOPIDOGREL BISULFATE 75 MG TABLET PO (11:26)
--- NOTE | 2024-08-20 14:35 | PC.SS ---
SS met with patient regarding his d/c plan. Pt is alert/oriented. Pt was admitted for Nstemi. Pt confirmed demographic and contact information is correct on facesheet. Patient's physical address is: [address] Pt resides with his cousins. Pt ambulates independently without assistance or DME. Pt is ok with all ADLs. Patient?s pharmacy [facility] choice is [facility] [address]. Pt named his brother, Gildardo Brandon medical decision maker if he is unable. Patient?s choice is to return home upon d/c. D/C plan: Return home Next of Kin: Gildardo Brandon, brother, phone# [phone] PCP: Dr. Morgan Persaud from [facility] Address: Correct on facesheet
--- NOTE | 2024-08-20 16:28 | ESDS_ITS ---
<Statement entered by Rubina Villanueva MD - 08/20/24 22:05> Patient was seen and examined at bedside. I agree on the assessment and plan on this note and agree on the discharge plan. - Patient's plan and care discussed with my attending, Dr. David Villanueva MD Internal Medicine PGY-2 Planned Discharge Date 08/20/24 DS: Providers Provider Date of admission: 08/18/24 13:37 Primary care physician: Morgan Persaud MD Admitting Provider: Jesus Alba DO Attending Provider on Admission: Juaquin Hernandez MD Consults: 08/18/24 13:33 Consult to Cardiology Stat Comment: Consulting Provider: Joslyn Hughes 08/18/24 16:57 [facility] Referral - Nutrition Routine Comment: Positive screening for nutrition needs. [facility] Referral - Transportation Routine Comment: Positive screening for transportation needs. Attending Provider on DC: Juaquin Hernandez MD Discharging Provider: Grayson Blanc MD DS: Diagnosis Problem List Completed Was Problem List Reviewed/Reconciled?: Yes Hospital Course Hospital Course Hospital course: Patient is a 43-year-old male with a past medical history significant for hype rlipidemia, primary hypertension, alcohol use disorder and NSTEMI 2023 presented with a chief complaint of chest pain. troponin 0.023 ---> 0.285. EKG showed sinus bradycardia, rate 57. No acute ST changes. Patient will be admitted for workup and management of NSTEMI. Cardiology, Dr. Hughes was consulted who recommended DAPT with aspirin and Plavix. Subsequently he underwent left heart catheterization with coronary angiogram and was found to have 60 to 70% proximal lesion of diagonal, LAD minor luminal irregularities and no significant lesions in the circumflex. RCA is dominant vessel. There was currently no indication for stenting at this time as patient had good flow distally and patent collaterals. Patient will be discharged on DAPT, high intensity statin and nitroglycerin SL as needed as per cardiology recommendations. All patient's labs are now returning to his baseline. Patient is now clinically stable and fit for discharge to home. Discharge diagnoses: 1. ACS?resolved 2. NSTEMI type I s/p coronary angiogram 08/19/2024 3. Primary hypertension 4. Hyperlipidemia 5. Unstable angina 6. Alcohol use disorder Discharge plan: ? You have been started on medication aspirin to prevent any heart attacks. ? You have been started on a medication Clopidogrel to prevent any heart attacks. - You have been started on a medication nitroglycerin for your chest pain. You can take up to 3 tablets a day as needed. DO NOT TAKE VIAGRA WITH THIS MEDICATION, THIS CAN CAUSE YOUR BLOOD PRESSURE TO DROP VERY LOW. ? Avoid taking any NSAIDs including Aleve, ibuprofen and diclofenac as these can increase your risk of bleeding. ? You have been started on a cholesterol medication. Take 1 tablet at night ? We have stopped your medication metoprolol because of your low heart rate. ? Follow-up with production bow maker, Dr. Hughes within 2 weeks of discharge. - Follow up with your primary care physician within 1 week of discharge. If you do not have a primary care physician, please follow up with the [facility] clinic ([phone]) ? If you experience any new, worsening or persistent symptoms either call your primary doctor, or dial 911 or present to the emergency department. - DO NOT LIFT ANYTHING MORE THAN 5 POUNDS WITH YOUR RIGHT ARM FOR THE NEXT WEEK. - KEEP THE BANDAGE CLEAN AND DRY We are grateful to be able to participate in Mr. Brandon's care. We wish him the best. Plan of care discussed with Attending Dr. Hernandez and PGY2 Dr. Rich Blanc MD PGY 1 Disclaimer: This note was dictated by speech recognition. Minor errors in personnel research psychologist may be present due to voice recognition software. Time Spent with Patient Time attestation: Total time spent providing and/or coordinating discharge services: Time spent: Greater than 30 minutes (43) Exam Vital Signs Temp Pulse Resp BP Pulse Ox O2 Del Method 97.0 F 69 18 117/92 H 97 Room Air 08/20/24 14:52 08/20/24 14:52 08/20/24 14:52 08/20/24 14:52 08/20/24 14:52 08/20/24 14:52 Narrative Exam Constitutional Alert, oriented x 3 and comfortable. Young male HEENT Vision grossly intact. Patent nares. Trachea midline Respiratory Chest normal on inspection, Nitropatch noted on left chest and clear auscultation bilaterally Cardiovascular S1 and S2 audible, RRR. No murmurs carotid bruit. No gross JVD. Abdominal Soft and non tender to palpation in all quadrants. BS + Genitourinary No bladder tenderness, no flank pain. Normal to palpation Musculoskeletal Extremities tone within normal limits. No LE edema. Neurological CN II - XII grossly intact. Extremity motor and sensation grossly intact. Skin Warm, dry and intact. No apparent lesions. Psychiatric Patient has good affect, is cooperative Discharge Plan Plan Patient Disposition: HOME (Self Care) Care Plan Goals: ? You have been started on medication aspirin to prevent any heart attacks. ? You have been started on a medication Clopidogrel to prevent any heart attacks. - You have been started on a medication nitroglycerin for your chest pain. You can take up to 3 tablets a day as needed. DO NOT TAKE VIAGRA WITH THIS MEDICATION, THIS CAN CAUSE YOUR BLOOD PRESSURE TO DROP VERY LOW. ? Avoid taking any NSAIDs including Aleve, ibuprofen and diclofenac as these can increase your risk of bleeding. ? You have been started on a cholesterol medication. Take 1 tablet at night ? We have stopped your medication metoprolol because of your low heart rate. ? Follow-up with production bow maker, Dr. Hughes within 2 weeks of discharge. - Follow up with your primary care physician within 1 week of discharge. If you do not have a primary care physician, please follow up with the [facility] clinic ([phone]) ? If you experience any new, worsening or persistent symptoms either call your primary doctor, or dial 911 or present to the emergency department. - DO NOT LIFT ANYTHING MORE THAN 5 POUNDS WITH YOUR RIGHT ARM FOR THE NEXT WEEK. - KEEP THE BANDAGE CLEAN AND DRY Prescriptions/Referrals Prescriptions/Med Rec: New pantoprazole 40 mg Tablet,Delayed Release (Dr/Ec) 40 mg PO QDAY 30 Days Qty: 30 0RF folic acid 1 mg Tablet 1 mg PO BID 14 Days Qty: 28 0RF nitroglycerin 0.4 mg tablet, sublingual 0.4 mg buccal .up to 3 MDD 3 tablets PRN (Reason: chest pain) Qty: 14 0RF Rx Instructions: You can take up to three tablets under your tongue in 15minutes. DO NOT TAKE MORE THAN 3 TABLETS A DAY. IF you are anticipating strenuous exercise, you can take 1-2 tablets under your tongue 30 minutes before. Continued atorvastatin 80 mg tablet 80 mg PO QPM 30 Days Qty: 30 2RF clopidogrel 75 mg Tablet 75 mg PO QDAY 30 Days Qty: 30 2RF aspirin 81 mg Tablet,Chewable 81 mg PO QDAY 30 Days Qty: 30 3RF Discontinued metoprolol succinate 25 mg Tablet Extended Release 24 Hr 25 mg PO QDAY 30 Days Qty: 30 2RF Referrals: [facility] [Outside] Morgan Persaud MD [Primary Care Provider] - Joslyn Hughes MD [Physician] - Patient/Caregiver Discharge Instructions Discharge Activity: activity as tolerated Other Discharge Activity Instructions:: Please follow Post PCI care handout instructions Education Materials: Cardiac Rehab Exercise Program, Cardiac Rehab Getting Started, Heart Attack Meds, Heart Attack Questions, Heart Attack: Leaving the Hospital, Eating Heart-Healthy Foods, Heart Attack resuming Sex Print Language: Hungarian Stand Alone Forms: [employer] Award Info., Patient Portal Info Letter Discharge Order Discharge Orders: Discharge (Routine); Ordered 08/20/24 Ordered By: Grayson Blanc Quality Discharge Quality Measures VTE prophylaxis Attestestation MD Attestation I reviewed labs, imaging, EKG, home medications and prior available records. Face to face evaluation was performed by me. I have personally examined the patient and discussed assessment and plan with the IM team. I reviewed the resident note and agree with the plan with exceptions as below. Non-STEMI Alcohol abuse Essential hypertension Hyperlipidemia Continue aspirin and Plavix Continue atorvastatin Status post cardiac catheterization that showed moderate coronary artery disease. No intervention was done. Discussed with cardiology: Okay to discharge the patient. Outpatient follow-up with cardiology Avoid alcohol use Time spent is 40 minutes. More than 50% of the time was spent on patient education and coordination of care.
== END 2024-08-20 14:39 | disposition home or self-care (01) | DRG 190 ==
LOC: SERX 07:48 → SERHOLD 14:07 → S2NX 16:50
PROVIDERS: Internal Medicine; Admitting Provider Student in an Organized Health Care Education/Training Program; Emergency Provider Family Medicine; PCP Family Medicine; Visit Provider Student in an Organized Health Care Education/Training Program
PROC: 4A023N7 Measurement of Cardiac Sampling and Pressure, Left Heart, Percutaneous Approach (ICD-10-PCS; principal; 2024-08-19 14:00)
DX: I21.4 Non-ST elevation (NSTEMI) myocardial infarction (principal); E78.5 Hyperlipidemia, unspecified; I10 Essential (primary) hypertension; I25.2 Old myocardial infarction; F10.10 Alcohol abuse, uncomplicated; I25.10 Atherosclerotic heart disease of native coronary artery without angina pectoris; Z79.02 Long term (current) use of antithrombotics/antiplatelets; Z79.82 Long term (current) use of aspirin; Z79.899 Other long term (current) drug therapy; Z87.891 Personal history of nicotine dependence; Z91.128 Patient's intentional underdosing of medication regimen for other reason
CPT/HCPCS: 36415; 71045; 80048; 80053; 80061; 83036; 83735; 84100; 84443; 84484; 85025; 85610; 85730; 93005; 96360; 96372; 99152; 99153; 99285; A4216; A4649; C1769; C1887; C1894; J0171; J0461; J0583; J1643; J1644; J2250; J2310; J2371; J3010; J3411; J3490; J7030; Q9967; A9270; C1725; J2305